=== PATIENT | female | born 1945 | race Two or more races ===

== ENCOUNTER 2018-02-01 07:52 | Outpatient (CLI) | payer OTHER ==
[~2018-02-01 07:52] MED LIST: HYZAAR 100-121 UDTAB; SYNTHROID88 MCG
== END 2018-02-01 08:12 | disposition home or self-care (01) ==
LOC: LAB 07:52
DX: N39.0 Urinary tract infection, site not specified (principal); D64.89 Other specified anemias; N95.1 Menopausal and female climacteric states; R97.0 Elevated carcinoembryonic antigen [CEA]; R97.1 Elevated cancer antigen 125 [CA 125]; E55.9 Vitamin D deficiency, unspecified; D51.3 Other dietary vitamin B12 deficiency anemia; Z13.29 Encounter for screening for other suspected endocrine disorder; Z13.220 Encounter for screening for lipoid disorders; Z12.11 Encounter for screening for malignant neoplasm of colon; Z13.1 Encounter for screening for diabetes mellitus; R82.79 Other abnormal findings on microbiological examination of urine

== ENCOUNTER 2018-02-01 09:01 | Outpatient (CLI) | payer OTHER | END 2018-02-01 10:16 | disposition home or self-care (01) | LOC: MAMO-SONO 09:01 | DX: Z12.31 Encounter for screening mammogram for malignant neoplasm of breast (principal); Z87.898 Personal history of other specified conditions; R10.13 Epigastric pain; E04.8 Other specified nontoxic goiter; N60.11 Diffuse cystic mastopathy of right breast; N60.12 Diffuse cystic mastopathy of left breast ==

== ENCOUNTER → 2018-02-07 09:08 | Outpatient (CLI) | payer OTHER | END | disposition home or self-care (01) | LOC: LAB 09:08 | DX: D51.3 Other dietary vitamin B12 deficiency anemia (principal); Z12.11 Encounter for screening for malignant neoplasm of colon ==

== ENCOUNTER → 2018-03-08 | Outpatient (CLI) | payer OTHER | END | disposition home or self-care (01) | LOC: SONOGRAMA 08:20 | DX: E04.2 Nontoxic multinodular goiter (principal) ==

== ENCOUNTER → 2018-03-21 | Outpatient (CLI) | payer OTHER | END | disposition home or self-care (01) | LOC: LAB 08:52 | DX: N39.0 Urinary tract infection, site not specified (principal) ==

== ENCOUNTER 2018-06-25 08:56 | Outpatient (CLI) | payer OTHER | END 2018-06-25 09:03 | disposition home or self-care (01) | LOC: LAB 08:56 | DX: I11.9 Hypertensive heart disease without heart failure (principal); E78.2 Mixed hyperlipidemia ==

== ENCOUNTER 2018-07-11 08:24 | Outpatient (CLI) | payer OTHER | END 2018-07-11 08:47 | disposition home or self-care (01) | LOC: LAB 08:24 | DX: N39.0 Urinary tract infection, site not specified (principal); R82.79 Other abnormal findings on microbiological examination of urine ==

== ENCOUNTER → 2018-07-19 07:21 | Outpatient (CLI) | payer OTHER | END | disposition home or self-care (01) | LOC: LAB 07:21 | DX: E03.8 Other specified hypothyroidism (principal); E78.4 Other hyperlipidemia; R10.84 Generalized abdominal pain ==

== ENCOUNTER 2018-07-20 07:19 | Outpatient (CLI) | payer OTHER | END 2018-07-20 07:34 | disposition home or self-care (01) | LOC: SONOGRAMA 07:19 | DX: R10.84 Generalized abdominal pain (principal); N21.8 Other lower urinary tract calculus ==

== ENCOUNTER → 2019-02-07 07:25 | Outpatient (CLI) | payer OTHER | END | disposition home or self-care (01) | LOC: LAB 07:25 | DX: E11.65 Type 2 diabetes mellitus with hyperglycemia (principal); N39.0 Urinary tract infection, site not specified; D64.89 Other specified anemias; E03.8 Other specified hypothyroidism; E11.21 Type 2 diabetes mellitus with diabetic nephropathy; E78.2 Mixed hyperlipidemia; Z12.11 Encounter for screening for malignant neoplasm of colon; E55.9 Vitamin D deficiency, unspecified ==

== ENCOUNTER 2019-03-30 08:52 | Outpatient (CLI) | payer OTHER | END 2019-03-30 09:07 | disposition home or self-care (01) | LOC: LAB 08:52 | DX: E78.2 Mixed hyperlipidemia (principal); I10 Essential (primary) hypertension; E03.8 Other specified hypothyroidism; E11.65 Type 2 diabetes mellitus with hyperglycemia ==

== ENCOUNTER 2019-06-09 07:34 | Outpatient (CLI) | payer OTHER | END 2019-06-09 07:37 | disposition home or self-care (01) | LOC: LAB 07:34 | DX: E11.65 Type 2 diabetes mellitus with hyperglycemia (principal); E11.21 Type 2 diabetes mellitus with diabetic nephropathy ==

== ENCOUNTER 2019-06-20 08:15 | Outpatient (CLI) | payer OTHER | END 2019-06-20 08:23 | disposition home or self-care (01) | LOC: LAB 08:15 | DX: E78.2 Mixed hyperlipidemia (principal); E03.8 Other specified hypothyroidism; E11.65 Type 2 diabetes mellitus with hyperglycemia ==

== ENCOUNTER 2019-07-08 07:43 | Outpatient (CLI) | payer OTHER | END 2019-07-08 07:53 | disposition home or self-care (01) | LOC: LAB 07:43 | DX: E03.8 Other specified hypothyroidism (principal); E04.1 Nontoxic single thyroid nodule; M81.8 Other osteoporosis without current pathological fracture ==

== ENCOUNTER 2021-09-12 09:41 | Emergency (ER) | payer OTHER ==
[~2021-09-12] VITALS: Ht 165.1 cm; Wt 84.8 kg
[2021-09-12] MEDS ORDERED: ATENOLOL25 GM MC (09:51)
[2021-09-12] MEDS ORDERED: MONTELUKAST SODI4 M1 PO (09:51)
[2021-09-12] MEDS ORDERED: AMLODIPINE-OLM1 EAC1 PO (09:52)
[2021-09-12] MEDS ORDERED: DICLOFENAC POTA50 MG PO (12:34)
[2021-09-12] MEDS ORDERED: ORPHENADRINE C100 MG PO (12:34)
== END 2021-09-12 14:38 | disposition home or self-care (01) ==
LOC: ER 09:41
DX: M25.511 Pain in right shoulder (principal); S43.491S Other sprain of right shoulder joint, sequela; X58.XXXS Exposure to other specified factors, sequela